=== PATIENT | female | born 1935 | race Caucasian/White ===

== ENCOUNTER 2019-03-08 00:02 | Emergency (ER) | payer OTHER ==
[2019-03-08 00:53] LABS: Absolute Monocytes 1.2 K/uL (0.1-1.3); Absolute Neutrophil 12.2 K/uL (1.8-8.0); Basophils % 0.9 % (0-1.3); Eosinophils % 0.4 % (0-4.4); Hematocrit 23.4 % (36.0-45.0); Lymphocytes % 12.6 % (15.3-44.8); MPV 9.1 fL (7.6-11.3); Monocytes % 7.6 % (3.3-12.3); RBC Red Blood Cell Count 2.49 M/uL (3.86-4.86)
[2019-03-08 00:56] LABS: Protime INR 0.89
[2019-03-08] MEDS ORDERED: CEFAZOLIN SODIUM 1 GM/VIAL ONE (01:10)
[2019-03-08] MEDS ORDERED: NA CHLORIDE 0.9% 100 ML IV ONE (01:10)
--- NOTE | 2019-03-08 01:35 | EDPHYS ---
Physician Documentation [facility] Name: Tia Mckeon Age: 83 yrs Sex: Female : 1935 Arrival Date: 03/08/2019 Time: 00:11 Bed 2 Private MD: ED Physician Alexy Benton HPI: 03/08 01:58 This 83 yrs old Female presents to ER via EMS with complaints of Leg Injury. tw4 01:58 The patient presents with an injury. The complaints affect the left murphy. Context: The tw4 problem was sustained at home, resulted from twisting of the extremity, during a fall. Onset: The symptoms/episode began/occurred just prior to arrival, today. Modifying factors: The symptoms are alleviated by nothing. the symptoms are aggravated by nothing. Associated signs and symptoms: The patient has no apparent associated signs or symptoms. Severity of symptoms: At their worst the symptoms were moderate, in the emergency department the symptoms are unchanged. Historical: - Allergies: 00:16 Sulfa (Sulfonamide Antibiotics); ak1 00:16 Latex, Natural Rubber; ak1 - Home Meds: 01:33 losartan 100 mg oral tab 1 tab once daily for Hypertension [Active]; atorvastatin 20 mg ak1 oral tab 1 tab once daily [Active]; Cipro 500 mg Oral tab 1 tab 2 times per day [Active]; meloxicam 15 mg oral tab 1 tab once daily [Active]; pantoprazole 40 mg oral TbEC 1 tab once daily [Active]; aspirin 81 mg Oral chew 1 tab once daily [Active]; clonidine HCl 0.1 mg Oral tab 1 tab 2 times per day for Hypertension [Active]; tramadol 50 mg Oral tab 1 tab every 6 hours for Pain [Active]; Vitamin D Oral 1,000 unit daily [Active]; - Immunization history:: Last tetanus immunization: unknown, Flu vaccine is up to date. - Social history:: Smoking status: unknown. - Ebola Screening: : No symptoms or risks identified at this time. ROS: 01:58 Constitutional: Negative for fever, chills, and weight loss, Eyes: Negative for injury, tw4 pain, redness, and discharge, Cardiovascular: Negative for chest pain, palpitations, and edema, Respiratory: Negative for shortness of breath, cough, wheezing, and pleuritic chest pain, Abdomen/GI: Negative for abdominal pain, nausea, vomiting, diarrhea, and constipation, Back: Negative for injury and pain, Skin: Negative for injury, rash, and discoloration. 01:58 MS/extremity: Positive for injury or acute deformity, deformity, laceration, swelling, tenderness. Exam: 01:58 Constitutional: This is a well developed, well nourished patient who is awake, alert, tw4 and in no acute distress. Head/Face: Normocephalic, atraumatic. Chest/axilla: Normal chest wall appearance and motion. Nontender with no deformity. No lesions are appreciated. Cardiovascular: Regular rate and rhythm with a normal S1 and S2. No gallops, murmurs, or rubs. Normal PMI, no JVD. No pulse deficits. Respiratory: Lungs have equal breath sounds bilaterally, clear to auscultation and percussion. No rales, rhonchi or wheezes noted. No increased work of breathing, no retractions or nasal flaring. Abdomen/GI: Soft, non-tender, with normal bowel sounds. No distension or tympany. No guarding or rebound. No evidence of tenderness throughout. Skin: Warm, dry with normal turgor. Normal color with no rashes, no lesions, and no evidence of cellulitis. 01:58 Musculoskeletal/extremity: Extremities: noted in the left murphy: deformity, erythema, laceration, tenderness. Vital Signs: 00:12 BP 122 / 66; Pulse 66; Resp 18; Temp 99.7; Pulse Ox 100% on R/A; Weight 68.04 kg (R); ak1 Height 5 ft. 5 in. (165.10 cm) (R); Pain 2/10; 00:30 BP 152 / 79; Pulse 62; Resp 17; Pulse Ox 100% on R/A; lp1 01:30 BP 164 / 55; Pulse 65; Resp 20; Pulse Ox 100% on R/A; lp1 02:00 BP 143 / 52; Pulse 62; Resp 17; Pulse Ox 98% on R/A; lp1 00:12 Body Mass Index 24.96 (68.04 kg, 165.10 cm) ak1 Milton Coma Score: 00:15 Eye Response: spontaneous(4). Verbal Response: oriented(5). Motor Response: obeys lp1 commands(6). Total: 15. Trauma Score (Adult): 00:15 Eye Response: spontaneous(1); Verbal Response: oriented(1); Motor Response: obeys lp1 commands(2); Systolic BP: > 89 mm Hg(4); Respiratory Rate: 10 to 29 per min(4); Jamar Score: 15; Trauma Score: 12 01:30 Eye Response: spontaneous(1); Verbal Response: oriented(1); Motor Response: obeys lp1 commands(2); Systolic BP: > 89 mm Hg(4); Respiratory Rate: 10 to 29 per min(4); Milton Score: 15; Trauma Score: 12 MDM: 00:12 Patient medically screened. tw4 01:58 Differential diagnosis: open fracture, closed fracture. Data reviewed: vital signs, tw4 nurses notes. Counseling: I had a detailed discussion with the patient and/or guardian regarding: the historical points, exam findings, and any diagnostic results supporting the discharge/admit diagnosis, lab results, radiology results. ED course: D/W Dr Novak at 0122 accepts pt for transfer. 03/08 00:13 Order name: Basic Metabolic Panel 03/08 00:13 Order name: CBC with Diff; Complete Time: 01:21 03/08 01:21 Interpretation: Normal except: WBC 15.6; RBC 2.49; HGB 7.9; HCT 23.4. 03/08 00:13 Order name: LFT's 03/08 00:13 Order name: Magnesium 03/08 00:13 Order name: NT PRO-BNP 03/08 00:13 Order name: PT-INR; Complete Time: 01:21 03/08 01:21 Interpretation: Normal except: PT 10.6. 03/08 00:13 Order name: Tib Fib Left XRAY 03/08 00:13 Order name: Troponin (emerg Dept Use Only) 03/08 00:13 Order name: EKG; Complete Time: 00:14 03/08 00:13 Order name: Cardiac monitoring; Complete Time: 00:20 03/08 00:13 Order name: EKG - Nurse/Tech; Complete Time: 00:44 03/08 01:37 Order name: Pelvis XRAY 03/08 00:13 Order name: IV Saline Lock; Complete Time: :30 4 03/08 00:13 Order name: Labs collected and sent; Complete Time: :4 03/08 00:13 Order name: O2 Per Protocol; Complete Time: 00:20 4 03/08 00:13 Order name: O2 Sat Monitoring; Complete Time: 00:20 4 03/08 00:54 Order name: Sepulveda; Complete Time: 4 03/08 00:54 Order name: Splint - Posterior Leg; Complete Time: tw4 EC:11 Rate is 60 beats/min. Rhythm is regular. QRS [place] is Normal. ID interval is normal. QRS tw4 interval is normal. QT interval is normal. No Q waves. T waves are Normal. No ST changes noted. Clinical impression: NSR w/ Non-specific ST/T Changes and Abnormal EKG without significant change. Interpreted by me. Reviewed by me. Administered Medications: 00:50 Drug: ceFAZolin 2 grams Route: IVPB; Infused Over: 30 mins; Site: left forearm; ak1 01:20 Follow up: IV Status: Completed infusion; IV Intake: 100ml ak 02:10 Drug: fentaNYL (PF) 50 mcg Route: IVP; Site: left forearm; lp1 02:15 Follow up: Response: Medication administered at discharge.; Given prior to transfer lp1 Disposition: 03/08/19 01:34 Transfer ordered to [facility]. Diagnosis are Displaced fracture of lateral condyle of left tibia, Displaced comminuted fracture of shaft of left fibula, fracture left tibia open, Fracture of left fibula open. - Reason for transfer: Higher level of care. - Accepting physician is Dr Novak. - Condition is Stable. - Problem is new. - Symptoms are unchanged. Signatures: Dispatcher [employer] EDAzul Rodriguez RN RN lp1 Olivia Wright RN RN ak1 Alexy Benton MD MD tw4 Corrections: (The following items were deleted from the chart) 02:30 01:34 03/08/2019 01:34 Transfer ordered to [facility]. lp1 Diagnosis is Displaced fracture of lateral condyle of left tibia; Displaced comminuted fracture of shaft of left fibula; fracture left tibia open; Fracture of left fibula open. Reason for transfer: Higher level of care. Accepting physician is Dr Novak. Condition is Stable. Problem is new. Symptoms are unchanged. tw4
--- NOTE | 2019-03-08 01:35 | ER ---
Nurse's Notes [facility] Name: Tia Mckeon Age: 83 yrs Sex: Female : 1935 Arrival Date: 03/08/2019 Time: 00:11 Bed 2 Private MD: Diagnosis: Displaced fracture of lateral condyle of left tibia;Displaced comminuted fracture of shaft of left fibula;fracture left tibia open;Fracture of left fibula open Presentation: 03/08 00:13 Presenting complaint: EMS states: pt twisted in the kitchen, heard a pop and fell from ak1 standing. pt with multiple skin tears. multiple bruising in different sages of healing. pt arrived with short leg splint in place. pt with open fx to left lower leg. laceration to left murphy, coved with NS and sterile 4X4. Transition of care: patient was not received from another setting of care. Onset of symptoms was March 08, 2019. Risk Assessment: Do you want to hurt yourself or someone else? Patient reports no desire to harm self or others. Initial Sepsis Screen: Does the patient meet any 2 criteria? No. Patient's initial sepsis screen is negative. Does the patient have a suspected source of infection? No. Patient's initial sepsis screen is negative. Care prior to arrival: None. 00:13 Method Of Arrival: EMS: [facility] ak1 00:13 Acuity: CHUN 2 ak1 00:15 Mechanism of Injury: Fall from standing position. Trauma event details: Injury occurred lp1 in the [facility], Injury occurred: at home. Injury occurred: March 07, 2019 Injury occurred at: 23:00. Triage Assessment: 00:16 General: Appears in no apparent distress. Behavior is calm, cooperative. Pain: ak1 Complains of pain in left murphy. EENT: No signs and/or symptoms were reported regarding the EENT system. Neuro: No deficits noted. Cardiovascular: No deficits noted. Respiratory: No deficits noted. GI: No signs and/or symptoms were reported involving the gastrointestinal system. : No signs and/or symptoms were reported regarding the genitourinary system. Derm: Skin is pink, warm \T\ dry. Wound noted left murphy Wound is laceration bleeding controlled. pulses noted to left foot per ERP. pt with multiple skin tears to multiple sites, multiple bruising to multiple sites. Musculoskeletal: Reports pain in left murphy. Injury Description: fall from standing. Trauma Activation: Alert Physician: ED Physician; Name: Dr. Benton; Notified At: 00:06; Arrived At: 00:06 Physician: General Surgeon; Name: N/A; Notified At: 00:06; Arrived At: Physician: Radiology; Name: Yaima; Notified At: 00:06; Arrived At: 00:07 Physician: Respiratory; Name: N/A; Notified At: 00:06; Arrived At: Physician: Lab; Name: N/A; Notified At: 00:06; Arrived At: Historical: - Allergies: 00:16 Sulfa (Sulfonamide Antibiotics); ak1 00:16 Latex, Natural Rubber; ak1 - Home Meds: 01:33 losartan 100 mg oral tab 1 tab once daily for Hypertension [Active]; atorvastatin 20 mg ak1 oral tab 1 tab once daily [Active]; Cipro 500 mg Oral tab 1 tab 2 times per day [Active]; meloxicam 15 mg oral tab 1 tab once daily [Active]; pantoprazole 40 mg oral TbEC 1 tab once daily [Active]; aspirin 81 mg Oral chew 1 tab once daily [Active]; clonidine HCl 0.1 mg Oral tab 1 tab 2 times per day for Hypertension [Active]; tramadol 50 mg Oral tab 1 tab every 6 hours for Pain [Active]; Vitamin D Oral 1,000 unit daily [Active]; - Immunization history:: Last tetanus immunization: unknown, Flu vaccine is up to date. - Social history:: Smoking status: unknown. - Ebola Screening: : No symptoms or risks identified at this time. Screenin:19 Abuse screen: Denies threats or abuse. Denies injuries from another. Nutritional ak1 screening: No deficits noted. Tuberculosis screening: No symptoms or risk factors identified. Fall Risk Fall in past 12 months (25 points). Gait- Impaired (20 pts.). Primary Survey: 00:15 NO uncontrolled hemorrhage observed. A: The patient is alert. Airway: patent, No lp1 supplemental oxygen in use on arrival. Breathing/Chest: Respiratory pattern: regular, Respiratory effort: spontaneous, unlabored, Breath sounds: clear, bilaterally. Chest inspection: symmetrical rise and fall of the chest. Circulation: Skin temperature: warm, dry. Disability Alert. Exposure/Environment: Obvious injury(ies) are noted at this time: open skin noted to left murphy; oozing blood. 01:15 Reassessment Airway Airway Patent Breathing/Chest Respiratory pattern Regular lp1 Respiratory effort Spontaneous Unlabored Circulation Pulses Palpable Temperature Warm Dry Disability Alert. Secondary Survey: 00:15 HEENT: No deficits noted. Gastrointestinal: Abdomen is soft, Palpation No deficit lp1 noted. : No signs and/or symptoms were reported regarding the genitourinary system. Musculoskeletal: Open wound noted to left murphy; pulse palpable in left dorsalis pedis. Assessment: 00:19 Reassessment: Patient appears in no apparent distress at this time. No changes from ak1 previously documented assessment. see triage assessment. General: Appears in no apparent distress. 01:00 Reassessment: Patient appears in no apparent distress at this time. General: Appears in lp1 no apparent distress. Behavior is appropriate for age. Cardiovascular: Pulses are 2+ in right dorsalis pedis artery and left dorsalis pedis artery. Respiratory: Respiratory effort is even, unlabored. 01:00 Derm: Skin is fragile, is thin, Skin is dry, Skin is normal. lp1 01:30 Reassessment: Dr. Benton at bedside to assess left leg splint. lp1 01:42 Reassessment: Report called to KAMILLE Phipps at [facility] for patient transfer lp1 to ER. 02:00 Reassessment: EMS at bedside for transfer. lp1 Vital Signs: 00:12 BP 122 / 66; Pulse 66; Resp 18; Temp 99.7; Pulse Ox 100% on R/A; Weight 68.04 kg (R); ak1 Height 5 ft. 5 in. (165.10 cm) (R); Pain 2/10; 00:30 BP 152 / 79; Pulse 62; Resp 17; Pulse Ox 100% on R/A; lp1 01:30 BP 164 / 55; Pulse 65; Resp 20; Pulse Ox 100% on R/A; lp1 02:00 BP 143 / 52; Pulse 62; Resp 17; Pulse Ox 98% on R/A; lp1 00:12 Body Mass Index 24.96 (68.04 kg, 165.10 cm) ak1 [place] Coma Score: 00:15 Eye Response: spontaneous(4). Verbal Response: oriented(5). Motor Response: obeys lp1 commands(6). Total: 15. Trauma Score (Adult): 00:15 Eye Response: spontaneous(1); Verbal Response: oriented(1); Motor Response: obeys lp1 commands(2); Systolic BP: > 89 mm Hg(4); Respiratory Rate: 10 to 29 per min(4); [place] Score: 15; Trauma Score: 12 01:30 Eye Response: spontaneous(1); Verbal Response: oriented(1); Motor Response: obeys lp1 commands(2); Systolic BP: > 89 mm Hg(4); Respiratory Rate: 10 to 29 per min(4); [place] Score: 15; Trauma Score: 12 ED Course: 00:11 Patient arrived in ED. ak1 00:11 Alexy Benton MD is Attending Physician. tw4 00:12 Arm band placed on Patient placed in an exam room, on a stretcher, Patient notified of ak1 wait time. 00:15 Triage completed. ak1 00:15 Patient maintains SpO2 saturation greater than 95% on room air. lp1 00:15 Thermoregulation: warm blanket given to patient. lp1 00:19 Patient has correct armband on for positive identification. Bed in low position. Call ak1 light in reach. Side rails up X2. pvc monitor on. Pulse ox on. NIBP on. 00:26 Tib Fib Left XRAY In Process Unspecified. EDMS 00:39 Azul Leahy, RN is Primary Nurse. lp1 01:15 Inserted saline lock: 22 gauge in left forearm, using aseptic technique. Blood oe collected. 01:23 Orthoglass splint: Posterior long leg splint applied on left leg. oe 01:24 Sepulveda cath inserted, using sterile technique, Patient tolerated well. oe 01:40 Pelvis XRAY In Process Unspecified. EDMS 02:00 No provider procedures requiring assistance completed. Patient transferred, IV remains lp1 in place. Administered Medications: 00:50 Drug: ceFAZolin 2 grams Route: IVPB; Infused Over: 30 mins; Site: left forearm; ak1 01:20 Follow up: IV Status: Completed infusion; IV Intake: 100ml ak1 02:10 Drug: fentaNYL (PF) 50 mcg Route: IVP; Site: left forearm; lp1 02:15 Follow up: Response: Medication administered at discharge.; Given prior to transfer lp1 Intake: 01:20 IV: 100ml; Total: 100ml. ak1 Output: 02:00 Urine: 250ml (Sepulveda); Total: 250ml. lp1 Outcome: 01:34 ER care complete, transfer ordered by . tw4 02:15 Transferred by ground EMS to [facility], Transfer form completed. X-rays sent lp1 w/ patient. 02:15 Condition: stable 02:15 Instructed on the need for transfer. 02:20 Patient left the ED. lp1 02:20 Patient's length of stay was not longer than 2 hours. lp1 Signatures: Dispatcher [employer] EDMS Azul Leahy, RN RN lp1 Olivia Wright RN RN ak1 Artemio Cortés Terrence, MD MD tw4 Corrections: (The following items were deleted from the chart) 01:27 01:24 Sepulveda cath inserted, using sterile technique, Patient tolerated well. oe oe 02:30 02:30 Patient left the ED. lp1 lp1
[2019-03-08 02:01] LABS: Potassium 4.3 mmol/L (3.5-5.1)
[2019-03-08 02:02] LABS: Albumin 3.6 g/dL (3.4-5.0); Bilirubin Direct 0.1 mg/dL (0-0.2); Bilirubin Total 0.3 mg/dL (0.2-1.0); Magnesium 6.8 mg/dL (1.8-2.4); Troponin (Emerg Dept Use Only) 0.03 ng/mL (0.0-0.045)
[2019-03-08] MEDS ORDERED: FENTANYL CITR 100 MCG/2 ML ONE (02:19)
--- NOTE | 2019-03-08 07:43 | EKG ---
Test Date: 2019-03-08 Test Time: 00:26:33 Street Superintendent: KARYN MEASUREMENT RESULTS: Intervals: Rate: 60 UT: 168 QRSD: 92 QT: 430 QTc: 430 [place]: P: 88 UT: 168 QRS: 4 T: 67 INTERPRETIVE STATEMENTS: Normal sinus rhythm Possible Septal infarct, age undetermined Abnormal ECG No previous ECG available for comparison Electronically Signed On 03-08-19 07:42:13 CDT by Grzegorz Pinon
--- NOTE | 2019-03-08 09:04 | RAD REPORT ---
EXAM DESCRIPTION: RAD - Tib Fib Left - 03/08/2019 12:26 am CLINICAL HISTORY: Fall, leg pain COMPARISON: None. FINDINGS: Transverse fracture is present in the proximal shaft of the left tibia. Significant soft t issue wound is seen lateral and anterior aspect of the leg. Proximally 20 degree lateral angulation o f the distal fracture fragment with 40 degree posterior angulation of the distal fracture fragment re lative to the tibial plateau. No gross evidence for a pathologic origin. There is a comminuted fractu re in the midshaft of the fibula with minimal angulation and displacement. Proximal fibula metaphysis is likely fractured as well. Patient has substantial degenerative change at the knee joint without an acute component seen. IMPRESSION: Proximal tibia shaft fracture with lateral and posterior angulation of the distal fractu re fragment. Significant soft tissue wound anterior and lateral. This is very likely an open fracture. Comminuted fracture midshaft fibula with nondisplaced fracture proximal fibula metaphysis.
--- NOTE | 2019-03-08 09:11 | RAD REPORT ---
EXAM DESCRIPTION: RAD - Pelvis - 03/08/2019 1:40 am CLINICAL HISTORY: Fall, pelvic, hip and leg pain COMPARISON: None. TECHNIQUE: AP imaging of the pelvis was obtained. FINDINGS: Detail is somewhat limited by technique and body habitus. Acute fracture is not confirmed. Patient has SI joint degenerative change. There are bilateral fractures at the superior ramus juncti on with the anterior column of the acetabulum. Bony bridging is present in these are subacute or old fractures. There is also evidence for old fracture at the right inferior pubic ramus. No fracture or dislocation of either proximal femur. No suspicious soft tissue finding. IMPRESSION: Patient has old fracture changes in the pelvis but no acute finding confirmed. No acute finding of either proximal femur. Detail is somewhat limited by body habitus and film technique. Patient has continued, unexplained pel emerson pain, follow-up CT imaging could be performed.
== END 2019-03-08 02:30 | disposition short-term general hospital (02) ==
LOC: ER 00:02
PROC: 2W3RX1Z Immobilization of Left Lower Leg using Splint (ICD-10-PCS; principal; 2019-03-08)
DX: S82.122A Displaced fracture of lateral condyle of left tibia, initial encounter for closed fracture (principal); S82.492A Other fracture of shaft of left fibula, initial encounter for closed fracture; S82.202B Unspecified fracture of shaft of left tibia, initial encounter for open fracture type I or II; S82.402B Unspecified fracture of shaft of left fibula, initial encounter for open fracture type I or II; W19.XXXA Unspecified fall, initial encounter; Y93.89 Activity, other specified; Y92.009 Unspecified place in unspecified non-institutional (private) residence as the place of occurrence of the external cause; Z88.2 Allergy status to sulfonamides; Z91.040 Latex allergy status; Z91.048 Other nonmedicinal substance allergy status; Z79.82 Long term (current) use of aspirin; I10 Essential (primary) hypertension
CPT/HCPCS: 96365; 93005; 85025; 80048; 36415; 83735; 85610; 80076; 84484; 83880; 72170; 73590; 51702; 96375; 99285; 29515; J3010; J0690

== ENCOUNTER 2019-04-13 10:13 | Emergency (ER) | payer OTHER ==
--- OUTSIDE RECORDS SUMMARY | 2019-04-13 10:16 | XMS REPORT ---
:1935 [facility] Address [address] [place] [address] Care Team Providers Name Role Phone Unavailable Unavailable Unavailable Problems This patient has no known problems. Allergies, Adverse Reactions, Alerts This patient has no known allergies or adverse reactions. Medications This patient has no known medications. Encounters Start End Encounter Admission Attending Care Care Encounter Date/Time Date/Time Type Type Clinicians Facility Department ID 2019-03-08 2019-03-08 Inpatient E [facility] MED [id number] 06:37:00 02:00:00
--- NOTE | 2019-04-13 11:55 | EDPHYS ---
Physician Documentation [facility] Name: Tia Mckeon Age: 83 yrs Sex: Female : 1935 Arrival Date: 04/13/2019 Time: 10:20 Bed 2 Private MD: ED Physician Tiago Martin HPI: 04/13 12:04 This 83 yrs old Female presents to ER via EMS with complaints of CPR. jr8 12:04 Preceding the arrest, the patient was dyspneic. The arrest occurred at alf. jr8 Pre-hospital course: The arrest was witnessed by EMS. Bystanders at the scene did not perform CPR. EMS care prior to arrival: initiation of ACLS, peripheral IV, was successfully placed. intubation was successfully performed, orally, using a 7.5 ET tube. oxygen, by BVM to assist ventilations. 100% by ET tube. ACLS details: Initial rhythm was tachycardia. The presenting rhythm is tachycardia. Airway: Ambu assist ventilation, oral intubation, Medications given by EMS prior to arrival - Epinephrine IV x 2 doses, Response to therapy: return of pulse. The patient has not experienced similar symptoms in the past. The patient has not recently seen a physician. Patients family stated that she had tibial surgery with graft a little over a month ago. Was released to [facility] for rehab and since then had been doing well. Today had sudden onset shortness of breath. EMS called at that time. Stated that she was in severe distress upon arrival. Stated that she ended up coding on scene. ACLS initiated and ROSC achieved. Family at that time along with [facility] staff did not have any advanced directives or DNR. After arriving here family was able to come to ED where advanced directives were given. Ultimately family decided to withdrawal all care and wanted patient to pass peacefully . Historical: - Allergies: 10:31 Latex, Natural Rubber; ph 10:31 Sulfa (Sulfonamide Antibiotics); ph - Immunization history:: Adult Immunizations unknown. - Social history:: Smoking status: unknown. - Ebola Screening: : No symptoms or risks identified at this time. ROS: 12:04 Unable to obtain ROS due to patient is on ventilator. jr8 Exam: 12:04 Eyes: Pupils equal round sluggish to light. Lids and lashes normal. Conjunctiva and jr8 sclera are non-icteric and not injected. Cornea within normal limits. Periorbital areas with no swelling, redness, or edema. ENT: Nares patent. No nasal discharge, no septal abnormalities noted. Oropharynx with no redness, swelling, or masses, exudates, or evidence of obstruction, uvula midline. Mucous membranes moist. Cardiovascular: Regular rate and rhythm with a normal S1 and S2. No gallops, murmurs, or rubs. Normal PMI, no JVD. No pulse deficits. Respiratory: Rales present bilaterally. Mechanically ventilated at rate of 12 bpm Abdomen/GI: Soft but distended Skin: Cool, dry and without lesions MS/ Extremity: Pulses equal, no cyanosis. Neurovascular intact. Full, normal range of motion. 12:04 Neuro: Orientation: Not oriented to person, place, time, situation, Patient status post CPR. No increase in mental status or neurologic tone. GCS 3T. Vital Signs: 10:20 BP 122 / 110; Pulse 106; Resp 22; Pulse Ox 88% on ETT ambu; ph 10:45 BP 74 / 28; Pulse 35; Resp 4; Temp 96.2(A); Pulse Ox 78% on R/A; ph MDM: 10:38 Patient medically screened. [facility] 12:04 Data reviewed: vital signs, nurses notes, EKG. Data interpreted: Pulse oximetry: on jr8 ventilator is 100 %. Interpretation: normal. ED course: After discussing condition with family. Family wanted to withdrawal care. Patient extubated and made comfortable. Patient at 10:50 AM. Chorus Master called at that time and arrangement for home was made. . 04/13 10:22 Order name: glucometer results - FOR PT WITH NO ID; Complete Time: 10:38 dh3 Administered Medications: No medications were administered Point of Care Testing: Blood Glucose: 10:20 Blood Glucose: 115 mg/dL; 3 Ranges: Critical Glucose Levels:Adult <50 mg/dl or >400 mg/dl <40 mg/dl or >180 mg/dl Disposition: 15:46 Co-signature as Attending Physician, Tiago Martin MD. Disposition: Patient pronounced on 04/13/19 10:50 by Felipe Centeno. Impression: Acute respiratory failure with hypoxia, Respiratory arrest, Cardiac arrest. - Released to Home. Signatures: Dispatcher [employer] EDMS Felipe Centeno, KORY HORN jr8 Roseanne Dorman RN RN ph Martin, MD MD radha Ordoñez Corrections: (The following items were deleted from the chart) 15:23 11:54 04/13/2019 11:54 Patient pronounced on 04/13/2019 at 10:50 by Felipe Centeno. ph Impression: Acute respiratory failure with hypoxia; Respiratory arrest; Cardiac arrest. Released to Home. jr8
--- NOTE | 2019-04-13 11:55 | ER ---
Nurse's Notes [facility] Name: Tia Mckeon Age: 83 yrs Sex: Female : 1935 Arrival Date: 04/13/2019 Time: 10:20 Bed 2 Private MD: Diagnosis: Acute respiratory failure with hypoxia;Respiratory arrest;Cardiac arrest Presentation: 04/13 10:21 Presenting complaint: EMS states: Pt from [place], there for rehab post leg fracture, ph was normal this morning, found by staff at approx 0920 w/ AMS, Spo2 79% RA given neb tx, then decreased to 59%, upon EMS arrival pt was found unresponsive w/ 5 respirations per minute, pt then went into asystole, ACLS/compressions initiated by EMS at 0934, epi administered x 2, pt intubated after 2 attempts , ROSC achieved at 1007, BGL 107, staff was unsure if pt was a DNR, spoke w/ daughter who stated that she was, daughter to bring DNR papers to ED. Care prior to arrival: CPR manually performed by EMS Medication(s) given: Epinephrine x 2 IV initiated. I/O to R tibia. Compressions began at 09:34. 10:21 Method Of Arrival: EMS: [facility] ph 10:21 Acuity: CHUN 1 ph 10:35 Transition of care: patient was received from another setting of care (long-term care facility), [place]. Onset of symptoms was April 13, 2019. Risk Assessment: Do you want to hurt yourself or someone else? Patient reports no desire to harm self or others. Initial Sepsis Screen: Does the patient meet any 2 criteria? No. Patient's initial sepsis screen is negative. Does the patient have a suspected source of infection? No. Patient's initial sepsis screen is negative. Triage Assessment: 10:20 General: Appears in no apparent distress. Behavior is unresponsive. Pain: Unable to use ph pain scale. Patient is unresponsive. Neuro: Level of Consciousness is unresponsive, Oriented to none. Cardiovascular: Capillary refill is sluggish in bilateral fingers Rhythm is sinus tachycardia. Respiratory: Airway is patent Trachea midline respirations assisted via ambu. GI: Abdomen is distended. Derm: Skin is fragile, is thin, Skin is pale. Historical: - Allergies: 10:31 Latex, Natural Rubber; ph 10:31 Sulfa (Sulfonamide Antibiotics); ph - Immunization history:: Adult Immunizations unknown. - Social history:: Smoking status: unknown. - Ebola Screening: : No symptoms or risks identified at this time. Screenin:32 Abuse screen: Denies threats or abuse. Denies injuries from another. Nutritional ph screening: No deficits noted. Tuberculosis screening: No symptoms or risk factors identified. Fall Risk None identified. Assessment: 10:20 CPR assessment: unresponsive, intubated, Ambu ventilation. ph 10:20 Respiratory: Airway via oral intubation 6.5 ET tube measuring 22 at lip. ph 10:28 Reassessment: ERP spoke to pt's family, decision made to extubate pt and d/c care, KORY Lim ph at bedside. 10:35 Reassessment: Pt extubated by RT. ph 10:39 Reassessment: Family at bedside. ph 10:45 Reassessment: Hr noted to have decreased to approx 30 bpm, ERP notified and at bedside. ph 10:50 Reassessment: pt , TOD 1050. ph 11:42 Reassessment: Food Processor at bedside. ph 12:46 Reassessment: Contacted [facility], pt is not a candidate for donation, case # ph [id number], coordinator Blanche Lima. 14:33 Reassessment: family remains at bedside, awaiting home. ph 15:20 Reassessment: Undertaker at bedside, body released to [facility]. ph Vital Signs: 10:20 BP 122 / 110; Pulse 106; Resp 22; Pulse Ox 88% on ETT ambu; ph 10:45 BP 74 / 28; Pulse 35; Resp 4; Temp 96.2(A); Pulse Ox 78% on R/A; ph ED Course: 10:20 Patient arrived in ED. ph 10:20 NGT: inserted 14 Fr. via left nare. verified placement of air over stomach. ph 10:25 Initial lab(s) drawn, by me, sent to lab. Inserted saline lock: 22 gauge in left wrist, sv using aseptic technique. Blood collected. Flushed left with 5 ml normal saline wrist. 10:28 Triage completed. ph 10:32 Patient has correct armband on for positive identification. Placed in gown. Bed in low ph position. Side rails up X2. asphalt tamper on. Pulse ox on. NIBP on. Warm blanket given. 10:36 Arm band placed on Patient placed in an exam room. ph 10:38 [facility] jr8 10:38 Tiago Martin MD is Attending Physician. jr8 10:41 Roseanne Dorman, RN is Primary Nurse. ph 11:53 Felipe Centeno PA is Pronouncing Provider. jr8 Administered Medications: No medications were administered Point of Care Testing: Blood Glucose: 10:20 Blood Glucose: 115 mg/dL; dh3 Ranges: Outcome: 10:50 Patient : Time of 10:50 Pronounced by Felipe HORN ph 15:23 Patient left the ED. ph Signatures: Zofia Castaneda RN RN Felipe Centeno PA PA jr8 Roseanne Dorman RN RN Jaki Gonzalez 3 Corrections: (The following items were deleted from the chart) 11:12 10:45 BP 74 / 28; Pulse 35bpm; Resp 4bpm; Pulse Ox 78% RA; Temp 97.2F Axillary; ph ph
--- NOTE | 2019-04-14 19:43 | EKG ---
Test Date: 2019-04-13 Test Time: 10:19:43 Supervisor Stage Carpentry: MEASUREMENT RESULTS: Intervals: Rate: 102 NV: QRSD: 72 QT: 364 QTc: 474 Kaplan: P: NV: QRS: 26 T: 223 INTERPRETIVE STATEMENTS: Atrial fibrillation with rapid ventricular response with premature ventricular or aberrantly conducted complexes ST & T wave abnormality, consider anterolateral ischemia Abnormal ECG Compared to ECG 03/08/2019 00:26:33 Ventricular premature complex(es) now present ST (T wave) deviation now present Possible ischemia now present Sinus rhythm no longer present Myocardial infarct finding no longer present Electronically Signed On 04-14-19 19:43:17 CDT by Grzegorz Pinon
== END 2019-04-13 15:23 | disposition expired ==
LOC: ER 10:13
DX: I46.9 Cardiac arrest, cause unspecified (principal); Z88.2 Allergy status to sulfonamides; Z91.040 Latex allergy status; Z91.048 Other nonmedicinal substance allergy status
CPT/HCPCS: 36415; 82962; 92950; 93005; 99285